=== PATIENT | female | born 1965 | race Caucasian/White ===

== ENCOUNTER → 2017-09-03 | Outpatient (CLI) | payer BC ==
[~2017-09-03] MED LIST: ALBU90OI; AMOX500 PO; CODGUAEL PO; FLU; FLUSAL1005; FURO20 PO; GUAI100SY; K-Dur20 MEQ PO; MONT10T; NYQUIL COLD; Norco 10-325 T1 EACH PO; PARO30
[2017-09-04 09:28] LABS: Candida species (DNA Probe) Negative (NEGATIVE); G. vaginalis (DNA Probe) Negative (NEGATIVE); T. vaginalis (DNA Probe) Negative (NEGATIVE)
[2017-09-06 12:00] LABS: HPV Genotype 16 Not Detected (NOTDET); HPV Genotype 18 Not Detected (NOTDET)
[2017-09-25 09:33] LABS: HPV High Risk Other Not Detected (NOTDET)
== END | disposition home or self-care (01) ==
LOC: LAB 15:30
PROVIDERS: Physician Assistant
DX: Z01.419 Encounter for gynecological examination (general) (routine) without abnormal findings (principal); N89.8 Other specified noninflammatory disorders of vagina
CPT/HCPCS: 87480; 87510; 87624; 87660; G0145

== ENCOUNTER 2018-12-06 06:37 | Day surgery (SDC) | payer OTHER ==
[~2018-12-06] VITALS: Ht 170.2 cm; Wt 120.4 kg
[2018-12-06] MEDS ORDERED: BUPR150ER PO (09:51)
[2018-12-06] MEDS ORDERED: ESCI20 PO (09:51)
== END 2018-12-06 23:11 | disposition home or self-care (01) ==
LOC: MHTC 06:37
DX: I87.2 Venous insufficiency (chronic) (peripheral) (principal)
CPT/HCPCS: 36475; 99152; 99153; C1769; C1888; C1894; J1644; J2250; J3010; J7040

== ENCOUNTER 2019-02-07 06:03 | Day surgery (SDC) | payer OTHER ==
[~2019-02-07] VITALS: Ht 170.2 cm; Wt 120.0 kg
[~2019-02-07 06:03] MED LIST changes: +BUPR150ER PO; +ESCI20 PO
== END 2019-02-07 23:01 | disposition home or self-care (01) ==
LOC: MHTC 06:03
DX: I87.2 Venous insufficiency (chronic) (peripheral) (principal); Z88.6 Allergy status to analgesic agent
CPT/HCPCS: 36475; 99152; C1888; C1894; J1644; J2250; J3010; J7040

== ENCOUNTER 2019-02-15 09:52 | Day surgery (SDC) | payer OTHER ==
[~2019-02-15] VITALS: Ht 170.2 cm; Wt 120.4 kg
--- NOTE | 2019-02-15 14:55 | NUR ---
Pt verbalized understanding of written and verbal d/c inst. IV removed. [facility]c.
== END 2019-02-15 22:49 | disposition home or self-care (01) ==
LOC: MHTC 09:52
DX: I83.012 Varicose veins of right lower extremity with ulcer of calf (principal); I87.2 Venous insufficiency (chronic) (peripheral); L97.219 Non-pressure chronic ulcer of right calf with unspecified severity
CPT/HCPCS: 36471; 37766; 99152; 99153; J2250; J3010; J7040

== ENCOUNTER → 2021-01-14 | Outpatient (CLI) | payer OTHER | END | disposition home or self-care (01) | LOC: LAB SHORT 08:32 | DX: R60.0 Localized edema (principal) | CPT/HCPCS: 84550 ==

== ENCOUNTER 2021-07-04 13:21 | Emergency (ER) | payer OTHER ==
[~2021-07-04] VITALS: Ht 167.6 cm; Wt 122.5 kg
[2021-07-04 13:58] LABS: BASOPHILS ABSOLUTE AUTO 0.12 K/mm3 (0.00-0.23); BASOPHILS PERCENT AUTO 1 % (0-2); EOSINOPHILS ABSOLUTE AUTO 0.28 K/mm3 (0.00-0.68); EOSINOPHILS PERCENT AUTO 2 % (0-6); Hemoglobin 14.2 g/dL (11.5-16.0); IMMATURE GRAN ABSOLUTE AUTO 0.12 K/mm3 (0.00-0.10); IMMATURE GRAN PERCENT AUTO 1 % (0-1); LYMPHOCYTES ABSOLUTE AUTO 2.97 K/mm3 (0.84-5.20); LYMPHOCYTES PERCENT AUTO 21 % (21-46); MONOCYTES ABSOLUTE AUTO 1.13 K/mm3 (0.16-1.47); MONOCYTES PERCENT AUTO 8 % (4-13); Mean Corpuscular HGB 29.6 pg (26.0-34.0); Mean Corpuscular HGB Conc 33.8 g/dL (31.5-36.5); Mean Corpuscular Volume 88 fL (80-100); Mean Platelet Volume 8.9 fL (9.1-12.4); NEUTROPHILS ABSOLUTE AUTO 9.58 K/mm3 (1.96-9.15); NEUTROPHILS PERCENT AUTO 68 % (41-73); Platelet Count 285 K/mm3 (150-400); RDW Coefficient Variation 13.6 % (11.7-14.2); RDW Standard Deviation 43.7 fL (35.1-46.3)
[2021-07-04 14:20] LABS: Alanine Aminotransfer (ALT/SGP 29 U/L (12-78); Albumin, Blood 3.5 g/dL (3.4-5.0); Alk Phos 113 U/L (50-136); Anion Gap 9 mmol/L (6-16); Aspartate Aminotrans (AST/SGOT 23 U/L (12-37); Bilirubin, Total 0.3 mg/dL (0.1-1.0); Blood Urea Nitrogen 9 mg/dL (8-24); Bun/Creatinine Ratio 12.8 (12.0-20.0); CO2, Blood 26 mmol/L (21-32); Calcium, Blood 7.9 mg/dL (8.5-10.1); Chloride, Blood 100 mmol/L (98-108); Globulin, Blood 3.5 g/dL (2.2-4.0); Glomerular Filtration Rate >60 (60-); Glucose, Blood 117 mg/dL (70-99); Potassium, Blood 3.6 mmol/L (3.5-5.5); Sodium, Blood 135 mmol/L (136-145)
== END 2021-07-04 16:17 | disposition home or self-care (01) ==
LOC: ER 13:21
PROVIDERS: Emergency Medicine
DX: R25.2 Cramp and spasm (principal); F17.210 Nicotine dependence, cigarettes, uncomplicated; Z88.6 Allergy status to analgesic agent
CPT/HCPCS: 36415; 80053; 82330; 85025; 93005; 93010; J0610; J2060; J2270; J2405

== ENCOUNTER 2022-11-30 04:59 | Emergency (ER) | payer OTHER ==
[~2022-11-30] VITALS: Ht 170.2 cm; Wt 120.2 kg
[2022-11-30 07:39] VITALS: BP 148/77
[2022-11-30] MEDS ORDERED: ALBU2.5V5 INH (07:56)
== END 2022-11-30 08:08 | disposition home or self-care (01) ==
LOC: ER 04:59
DX: J45.901 Unspecified asthma with (acute) exacerbation (principal); T17.928A Food in respiratory tract, part unspecified causing other injury, initial encounter; F17.210 Nicotine dependence, cigarettes, uncomplicated; X58.XXXA Exposure to other specified factors, initial encounter; Z79.899 Other long term (current) drug therapy
CPT/HCPCS: 71045; 94640; 94664; J1100

== ENCOUNTER → 2023-03-05 | Outpatient (CLI) | payer OTHER ==
[~2023-03-05] MED LIST changes: +ALBU2.5V5 INH
[2023-03-06 12:58] LABS: Candida species (DNA Probe) Negative (NEGATIVE); G. vaginalis (DNA Probe) Negative (NEGATIVE); T. vaginalis (DNA Probe) Negative (NEGATIVE)
== END ==
LOC: LAB SHORT 15:14 → LAB 15:14
PROVIDERS: Physician Assistant
DX: N89.8 Other specified noninflammatory disorders of vagina (principal)
CPT/HCPCS: 87480; 87510; 87660

== ENCOUNTER → 2024-09-19 | Outpatient (CLI) | payer BC ==
[2024-09-25 08:53] LABS: HPV HIGH RISK BY TMA Not Detected; HPV SOURCE Cervical
== END ==
LOC: LAB 10:49 → LAB SHORT 10:49
PROVIDERS: Physician Assistant
DX: Z01.419 Encounter for gynecological examination (general) (routine) without abnormal findings (principal)
CPT/HCPCS: 87624; G0123